=== PATIENT | male | born 1970 | race Caucasian/White ===

== ENCOUNTER 2023-12-31 07:41 | Outpatient (RCR) | payer BC, SELFPAY ==
[2023-12-31] VITALS (7 sets, daily range): BP systolic 134–155; BP diastolic 86–98
[2023-12-31 08:21] LABS: % Basophils 0.8 % (0-2); % Eosinophils 1.1 % (0-6); % Immature Granulocytes 0.5 % (0-0.5); % Lymphocytes 12.6 % (20.5-51.1); % Monocytes 6.6 % (1.7-9.3); % Neutrophils 78.4 % (42.2-75.2); Absolute Basophils 0.1 10^3/uL (0-0.2); Absolute Eosinophils 0.1 10^3/uL (0-0.7); Absolute Lymphocytes 0.8 10^3/uL (1.2-3.4); Absolute Monocytes 0.4 10^3/uL (0.1-0.6); Hematocrit 45.3 % (39.0-52.0); Mean Corp Hgb Conc. 35.3 g/dL (33.0-37.0); Mean Corpuscular Hgb 31.1 pg (27.0-31.0); Mean Corpuscular Volume 88.1 fL (80.0-94.0); Mean Platelet Volume 10.2 fL (7.4-10.4); Nucleated Red Blood Cells % 0 % (-); Platelet Count 244 10^3/uL (130-400); Red Blood Cell Count 5.14 10^6/uL (4.70-6.10); Red Cell Dist. Width 12.4 % (11.5-14.5); White Blood Cell Count 6.4 10^3/uL (4.8-10.8)
[2023-12-31] MEDS: NSS 500 IV (08:36)
[2023-12-31] MEDS: TYLENOL 650 MG PO (08:38)
[2023-12-31] MEDS: SOLU-MEDROL 258 MG IV (08:48)
[2023-12-31] MEDS: BENADRYL 51 MG IV (10:09)
[2023-12-31] MEDS: OCREVUS 520 MG IV (10:38)
== END 2024-01-01 09:07 | disposition home or self-care (01) ==
LOC: OID 07:41
PROVIDERS: ATTENDING PHYSICIAN Psychiatry & Neurology Behavioral Neurology & Neuropsychiatry; FAMILY PHYSICIAN Family Medicine
DX: G35 Multiple sclerosis (principal)
CPT/HCPCS: 36415; 85025; 96367; 96413; 96415; J2350

== ENCOUNTER 2024-01-28 07:43 | Outpatient (RCR) | payer BC, SELFPAY ==
[2024-01-28] MEDS: SOLU-MEDROL 258 MG IV (08:05)
[2024-01-28 08:10] VITALS: BP 151/99
== END 2024-01-28 14:54 | disposition home or self-care (01) ==
LOC: OID 07:43
PROVIDERS: ATTENDING PHYSICIAN Psychiatry & Neurology Behavioral Neurology & Neuropsychiatry; FAMILY PHYSICIAN Family Medicine
DX: G35 Multiple sclerosis (principal)
CPT/HCPCS: 96365

== ENCOUNTER 2024-03-21 07:38 | Outpatient (RCR) | payer BC, SELFPAY ==
[2024-03-21 07:51] VITALS: BP 144/95
[2024-03-21] MEDS: SOLU-MEDROL 258 MG IV (08:09)
== END 2024-03-21 11:31 | disposition home or self-care (01) ==
LOC: OID 07:38
PROVIDERS: ATTENDING PHYSICIAN Psychiatry & Neurology Behavioral Neurology & Neuropsychiatry; FAMILY PHYSICIAN Family Medicine
DX: G35 Multiple sclerosis (principal)
CPT/HCPCS: 96365

== ENCOUNTER 2024-04-18 07:39 | Outpatient (RCR) | payer BC, SELFPAY ==
[2024-04-18 07:55] VITALS: BP 144/88
[2024-04-18] MEDS: SOLU-MEDROL 258 MG IV (08:11)
== END 2024-04-21 09:16 | disposition home or self-care (01) ==
LOC: OID 07:39
PROVIDERS: ATTENDING PHYSICIAN Psychiatry & Neurology Behavioral Neurology & Neuropsychiatry; FAMILY PHYSICIAN Family Medicine
DX: G35 Multiple sclerosis (principal)
CPT/HCPCS: 96365

== ENCOUNTER 2024-05-16 07:40 | Outpatient (RCR) | payer BC, SELFPAY ==
[2024-05-16 07:45] VITALS: BP 138/95
[2024-05-16] MEDS: SOLU-MEDROL 258 MG IV (08:12)
== END 2024-05-19 15:54 | disposition home or self-care (01) ==
LOC: OID 07:40
PROVIDERS: ATTENDING PHYSICIAN Psychiatry & Neurology Behavioral Neurology & Neuropsychiatry; FAMILY PHYSICIAN Family Medicine
DX: G35 Multiple sclerosis (principal)
CPT/HCPCS: 96365

== ENCOUNTER 2024-06-30 07:49 | Outpatient (RCR) | payer BC, SELFPAY ==
[2024-06-30] VITALS (7 sets, daily range): BP systolic 128–153; BP diastolic 72–98
[2024-06-30 08:18] LABS: % Basophils 0.7 % (0-2); % Eosinophils 1.2 % (0-6); % Immature Granulocytes 0.4 % (0-0.5); % Lymphocytes 12.1 % (20.5-51.1); % Monocytes 5.9 % (1.7-9.3); % Neutrophils 79.7 % (42.2-75.2); Absolute Basophils 0.1 10^3/uL (0-0.2); Absolute Eosinophils 0.1 10^3/uL (0-0.7); Absolute Monocytes 0.5 10^3/uL (0.1-0.6); Absolute Neutrophils 6.4 10^3/uL (1.4-6.5); Hematocrit 45.3 % (39.0-52.0); Hemoglobin 15.7 g/dL (13.0-18.0); Mean Corp Hgb Conc. 34.7 g/dL (33.0-37.0); Mean Corpuscular Hgb 30.3 pg (27.0-31.0); Mean Corpuscular Volume 87.3 fL (80.0-94.0); Mean Platelet Volume 9.9 fL (7.4-10.4); Nucleated Red Blood Cells % 0 % (-); Platelet Count 274 10^3/uL (130-400); Red Blood Cell Count 5.19 10^6/uL (4.70-6.10); Red Cell Dist. Width 12.7 % (11.5-14.5)
[2024-06-30] MEDS: TYLENOL 650 MG PO (08:31)
[2024-06-30] MEDS: NSS 500 IV (08:31)
[2024-06-30] MEDS: SOLU-MEDROL 258 MG IV (08:32)
[2024-06-30] MEDS: BENADRYL 51 MG IV (09:42)
[2024-06-30] MEDS: OCREVUS 520 MG IV (10:14)
== END 2024-07-01 09:04 | disposition home or self-care (01) ==
LOC: OID 07:49
PROVIDERS: ATTENDING PHYSICIAN Psychiatry & Neurology Behavioral Neurology & Neuropsychiatry; FAMILY PHYSICIAN Family Medicine
DX: G35 Multiple sclerosis (principal)
CPT/HCPCS: 36415; 85025; 96367; 96413; 96415; J2350

== ENCOUNTER 2024-07-28 07:41 | Outpatient (RCR) | payer BC, SELFPAY ==
[2024-07-28 07:48] VITALS: BP 142/101
[2024-07-28] MEDS: SOLU-MEDROL 258 MG IV (08:06)
== END 2024-07-29 08:21 | disposition home or self-care (01) ==
LOC: OID 07:41
PROVIDERS: ATTENDING PHYSICIAN Psychiatry & Neurology Behavioral Neurology & Neuropsychiatry; FAMILY PHYSICIAN Family Medicine
DX: G35 Multiple sclerosis (principal)
CPT/HCPCS: 96365

== ENCOUNTER 2024-08-25 07:39 | Outpatient (RCR) | payer BC, SELFPAY ==
[2024-08-25 08:00] VITALS: BP 137/94
[2024-08-25] MEDS: SOLU-MEDROL 258 MG IV (08:06)
== END 2024-08-25 14:53 | disposition home or self-care (01) ==
LOC: OID 07:39
PROVIDERS: ATTENDING PHYSICIAN Psychiatry & Neurology Behavioral Neurology & Neuropsychiatry; FAMILY PHYSICIAN Family Medicine
DX: G35 Multiple sclerosis (principal)
CPT/HCPCS: 96365

== ENCOUNTER 2024-09-22 07:34 | Outpatient (RCR) | payer BC, SELFPAY ==
[2024-09-22 07:54] VITALS: BP 151/98
[2024-09-22] MEDS: SOLU-MEDROL 258 MG IV (07:58)
== END 2024-09-23 08:16 | disposition home or self-care (01) ==
LOC: OID 07:34
PROVIDERS: ATTENDING PHYSICIAN Psychiatry & Neurology Behavioral Neurology & Neuropsychiatry; FAMILY PHYSICIAN Family Medicine
DX: G35 Multiple sclerosis (principal)
CPT/HCPCS: 96365

== ENCOUNTER 2024-10-20 07:42 | Outpatient (RCR) | payer BC, SELFPAY ==
[2024-10-20 08:00] VITALS: BP 147/97
[2024-10-20] MEDS: SOLU-MEDROL 258 MG IV (08:06)
== END 2024-10-21 09:03 | disposition home or self-care (01) ==
LOC: OID 07:42
PROVIDERS: ATTENDING PHYSICIAN Psychiatry & Neurology Behavioral Neurology & Neuropsychiatry; FAMILY PHYSICIAN Family Medicine
DX: G35 Multiple sclerosis (principal)
CPT/HCPCS: 96365

== ENCOUNTER 2024-11-17 07:52 | Outpatient (RCR) | payer BC, SELFPAY ==
[2024-11-17 07:50] VITALS: BP 141/94
[2024-11-17] MEDS: SOLU-MEDROL 258 MG IV (08:10)
== END 2024-12-05 23:59 | disposition home or self-care (01) ==
LOC: OID 07:52
PROVIDERS: ATTENDING PHYSICIAN Psychiatry & Neurology Behavioral Neurology & Neuropsychiatry; FAMILY PHYSICIAN Family Medicine
DX: G35 Multiple sclerosis (principal)
CPT/HCPCS: 96365

== ENCOUNTER 2024-12-29 07:40 | Outpatient (RCR) | payer BC, SELFPAY ==
[2024-12-29] VITALS (7 sets, daily range): BP systolic 132–150; BP diastolic 84–102
[2024-12-29] MEDS: NSS 500 IV (08:13)
[2024-12-29] MEDS: SOLU-MEDROL 258 MG IV (08:13)
[2024-12-29] MEDS: TYLENOL 650 MG PO (08:14)
[2024-12-29 08:16] LABS: % Basophils 0.2 % (0-2); % Eosinophils 0.9 % (0-6); % Immature Granulocytes 0.4 % (0-0.5); % Lymphocytes 10.7 % (20.5-51.1); % Monocytes 5.9 % (1.7-9.3); % Neutrophils 81.9 % (42.2-75.2); Absolute Eosinophils 0.1 10^3/uL (0-0.7); Absolute Lymphocytes 0.9 10^3/uL (1.2-3.4); Absolute Monocytes 0.5 10^3/uL (0.1-0.6); Absolute Neutrophils 6.6 10^3/uL (1.4-6.5); Hematocrit 45.3 % (39.0-52.0); Hemoglobin 15.6 g/dL (13.0-18.0); Mean Corp Hgb Conc. 34.4 g/dL (33.0-37.0); Mean Corpuscular Hgb 30.2 pg (27.0-31.0); Mean Corpuscular Volume 87.8 fL (80.0-94.0); Mean Platelet Volume 9.8 fL (7.4-10.4); Platelet Count 252 10^3/uL (130-400); Red Blood Cell Count 5.16 10^6/uL (4.70-6.10); Red Cell Dist. Width 12.8 % (11.5-14.5)
[2024-12-29] MEDS: BENADRYL 51 MG IV (09:24)
[2024-12-29] MEDS: OCREVUS 520 MG IV (09:53)
== END 2024-12-30 15:35 | disposition home or self-care (01) ==
LOC: OID 07:40
PROVIDERS: ATTENDING PHYSICIAN Psychiatry & Neurology Behavioral Neurology & Neuropsychiatry; FAMILY PHYSICIAN Family Medicine
DX: G35 Multiple sclerosis (principal)
CPT/HCPCS: 85025; 96367; 96413; 96415; J2350

== ENCOUNTER 2025-01-29 07:40 | Outpatient (RCR) | payer BC, SELFPAY ==
[2025-01-29] MEDS: SOLU-MEDROL 258 MG IV (08:11)
[2025-01-29 08:16] VITALS: BP 134/89
== END 2025-01-30 08:12 | disposition home or self-care (01) ==
LOC: OID 07:40
PROVIDERS: ATTENDING PHYSICIAN Psychiatry & Neurology Behavioral Neurology & Neuropsychiatry; FAMILY PHYSICIAN Family Medicine
DX: G35 Multiple sclerosis (principal)
CPT/HCPCS: 96365

== ENCOUNTER 2025-02-26 07:37 | Outpatient (RCR) | payer BC, SELFPAY ==
[2025-02-26] MEDS: SOLU-MEDROL 258 MG IV (08:06)
[2025-02-26 08:13] VITALS: BP 140/94
== END 2025-02-27 09:36 | disposition home or self-care (01) ==
LOC: OID 07:37
PROVIDERS: ATTENDING PHYSICIAN Psychiatry & Neurology Behavioral Neurology & Neuropsychiatry; FAMILY PHYSICIAN Family Medicine
DX: G35 Multiple sclerosis (principal)
CPT/HCPCS: 96365

== ENCOUNTER 2025-03-26 07:41 | Outpatient (RCR) | payer BC, SELFPAY ==
[2025-03-26 07:55] VITALS: BP 142/104
[2025-03-26] MEDS: SOLU-MEDROL 258 MG IV (08:10)
[2025-03-26 09:26] VITALS: BP 148/98
== END 2025-03-27 09:38 | disposition home or self-care (01) ==
LOC: OID 07:41
PROVIDERS: ATTENDING PHYSICIAN Psychiatry & Neurology Behavioral Neurology & Neuropsychiatry; FAMILY PHYSICIAN Family Medicine
DX: G35 Multiple sclerosis (principal)
CPT/HCPCS: 96365

== ENCOUNTER 2025-04-23 07:37 | Outpatient (RCR) | payer BC, SELFPAY ==
[2025-04-23 07:50] VITALS: BP 130/91
[2025-04-23] MEDS: SOLU-MEDROL 258 MG IV (08:05)
== END 2025-04-24 08:13 | disposition home or self-care (01) ==
LOC: OID 07:37
PROVIDERS: ATTENDING PHYSICIAN Psychiatry & Neurology Behavioral Neurology & Neuropsychiatry; FAMILY PHYSICIAN Family Medicine
DX: G35 Multiple sclerosis (principal)
CPT/HCPCS: 96365

== ENCOUNTER 2025-05-21 07:42 | Outpatient (RCR) | payer BC, SELFPAY ==
[2025-05-21 07:50] VITALS: BP 153/94
[2025-05-21] MEDS: SOLU-MEDROL 258 MG IV (08:08)
== END 2025-05-22 08:50 | disposition home or self-care (01) ==
LOC: OID 07:42
PROVIDERS: ATTENDING PHYSICIAN Psychiatry & Neurology Behavioral Neurology & Neuropsychiatry; FAMILY PHYSICIAN Family Medicine
DX: G35 Multiple sclerosis (principal)
CPT/HCPCS: 96365

== ENCOUNTER 2025-06-18 07:42 | Outpatient (RCR) | payer BC, SELFPAY ==
[2025-06-18] VITALS (7 sets, daily range): BP systolic 118–148; BP diastolic 65–100
[2025-06-18] MEDS: SOLU-MEDROL 258 MG IV (08:01)
[2025-06-18 08:10] LABS: Hematocrit 45.8 % (39.0-52.0); Hemoglobin 15.7 g/dL (13.0-18.0); Mean Corp Hgb Conc. 34.3 g/dL (33.0-37.0); Mean Corpuscular Volume 87.7 fL (80.0-94.0); Platelet Count 274 10^3/uL (130-400); Red Cell Dist. Width 12.1 % (11.5-14.5)
[2025-06-18] MEDS: BENADRYL 51 MG IV (09:16)
[2025-06-18] MEDS: NSS 500 IV (09:17)
[2025-06-18] MEDS: TYLENOL 650 MG PO (09:17)
[2025-06-18] MEDS: OCREVUS 520 MG IV (09:46)
== END 2025-06-19 08:26 | disposition home or self-care (01) ==
LOC: OID 07:42
PROVIDERS: ATTENDING PHYSICIAN Psychiatry & Neurology Behavioral Neurology & Neuropsychiatry; FAMILY PHYSICIAN Family Medicine
DX: G35 Multiple sclerosis (principal)
CPT/HCPCS: 36415; 85025; 96367; 96413; 96415; J2350

== ENCOUNTER 2025-07-16 07:48 | Outpatient (RCR) | payer BC, SELFPAY ==
[2025-07-16 07:45] VITALS: BP 137/88
[2025-07-16] MEDS: SOLU-MEDROL 258 MG IV (08:09)
== END 2025-07-16 15:01 | disposition home or self-care (01) ==
LOC: OID 07:48
PROVIDERS: ATTENDING PHYSICIAN Psychiatry & Neurology Behavioral Neurology & Neuropsychiatry; FAMILY PHYSICIAN Family Medicine
DX: G35 Multiple sclerosis (principal)
CPT/HCPCS: 96365

== ENCOUNTER 2025-08-13 07:40 | Outpatient (RCR) | payer BC, SELFPAY ==
[2025-08-13] MEDS: SOLU-MEDROL 258 MG IV (08:04)
[2025-08-13 08:16] VITALS: BP 128/89
== END 2025-08-13 15:16 | disposition home or self-care (01) ==
LOC: OID 07:40
PROVIDERS: ATTENDING PHYSICIAN Psychiatry & Neurology Behavioral Neurology & Neuropsychiatry; FAMILY PHYSICIAN Family Medicine
DX: G35.D Multiple sclerosis, unspecified (principal)
CPT/HCPCS: 96365

== ENCOUNTER 2025-10-08 07:35 | Outpatient (RCR) | payer BC, SELFPAY ==
[2025-10-08] MEDS: SOLU-MEDROL 258 MG IV (08:00)
[2025-10-08 08:09] VITALS: BP 139/98
== END 2025-10-09 09:24 | disposition home or self-care (01) ==
LOC: OID 07:35
PROVIDERS: ATTENDING PHYSICIAN Psychiatry & Neurology Behavioral Neurology & Neuropsychiatry; FAMILY PHYSICIAN Family Medicine
DX: G35.B0 Primary progressive multiple sclerosis, unspecified (principal); G35 Multiple sclerosis (principal)
CPT/HCPCS: 96365